=== PATIENT | male | born 1960 | race African-American/Black ===

== ENCOUNTER 2023-12-28 07:52 | Inpatient (IN) | payer SELFPAY ==
[2023-12-28] MEDS ORDERED: Acetaminophen 500 MG TAB ONE (09:52)
[2023-12-28 10:21] LABS: #Eosinphils 0.1 thou/uL (0.0-0.7); #Monocytes 0.7 thou/uL (0.11-0.59); #Neutrophils 6.1 thou/uL (1.40-6.50); %Basophils 0.2 % (0.0-1.0); %Lymphocytes 22.7 % (21.0-51.0); %Monocytes 8.2 % (0.0-10.0); %Neutrophils 67.2 % (42.0-75.0); Hematocrit 37.5 % (42.0-52.0); Mean Corpuscular Hemoglobin 22.6 pg (27.0-31.0); Mean Corpuscular Volume 70.5 fl (78.0-98.0); Platelet Count 553 10x3/uL (130-400); RBC Distribution Width 13.2 % (11.5-14.5); Red Blood Cell (RBC) Count 5.32 mill/uL (4.70-6.10)
[2023-12-28] MEDS ORDERED: Iopamidol-370 76% 500 ML MDV (1 ML CHARGE) ONE (10:29)
[2023-12-28 10:44] LABS: Bacteria/HPF None Seen HPF (None Seen); Bilirubin Negative (Negative); Blood, Urine Negative (Negative); CAUTI Indications for Culture Dysuria,urgency,freq; Clarity Clear (Clear); Glucose, Urine (Dipstick) Normal (Negative); Ketone, Urine Negative (Negative); Leukocyte Negative Leu/uL (Negative); Nitrite Negative (Negative); Protein, Urine (Dipstick) Negative (Neg-Trace); RBC/HPF None Seen HPF (0-3); Specific Gravity, Urine 1.013 (1.002-1.036); Squamous Epithelial None Seen HPF (0-3); Urobilinogen Normal mg/dL (Less than 2); WBC/HPF 0-3 HPF (0-3)
[2023-12-28 10:48] LABS: Urine Culture Reflex No No
[2023-12-28 10:49] LABS: ALT (SGPT) 23 U/L (8-55); AST (SGOT) 17 U/L (5-34); Albumin 3.5 g/dL (3.4-4.8); Alkaline Phosphatase 64 U/L (40-110); Anion Gap 13 mmol/L (10-20); BUN (Urea Nitrogen) 13 mg/dL (8.4-25.7); Bilirubin, Total Less than 0.2 mg/dL (0.2-1.2); CK (CPK) 201 U/L (30-200); Calc. Creatinine Clearance 0 mL/min (70-130); Carbon Dioxide 21 mmol/L (23-31); Chloride 105 mmol/L (98-107); Estimated GFR 102; Globulin 3.5 g/dL (2.4-3.5); Glucose 123 mg/dL (80-115); Lipase 85 U/L (8-78); Magnesium 2.1 mg/dL (1.6-2.6); Potassium 4.4 mmol/L (3.5-5.1); Sodium 135 mmol/L (136-145)
[2023-12-28 10:51] LABS: CellaVision Operator ID LAB.KW3; Platelet Adequacy Comment Platelets Increased; RBC Morphology Within Normal Limits
[2023-12-28 10:58] LABS: HIV (1/2) Antibody/Antigen Non-Reactive (NonReactive); HIV 1/2 INDEX 0.13 S/CO (<1.00); Thyroid Stimulating Hormone 1.5302 uIU/mL (0.35-4.94)
[2023-12-28] MEDS ORDERED: Azithromycin 500 MG VIAL ONE (14:41)
[2023-12-28] MEDS ORDERED: Sodium Chloride 0.9% 100 ML ONE (14:42)
[2023-12-28] MEDS ORDERED: Acetaminophen 325 MG TAB PO PRN (16:06)
[2023-12-28] MEDS ORDERED: Ondansetron PF 4 MG/2 ML Vial IVP PRN (16:06)
[2023-12-28] MEDS ORDERED: Guaifenesin DM 100-10/5 ML UDCUP PO PRN (16:06)
[2023-12-28] MEDS ORDERED: Ondansetron ODT 4 MG TAB PO PRN (16:06)
[2023-12-28] MEDS ORDERED: HYDROcodone/Acetaminophen 5/325 mg Tablet PO PRN (16:06)
[2023-12-28] MEDS ORDERED: Nicotine 14 MG PATCH TD PRN (16:06)
[2023-12-28] MEDS ORDERED: Lorazepam 2 MG/ML VIAL IM PRN (16:09)
[2023-12-28] MEDS ORDERED: Lorazepam 1 MG TAB PO PRN (16:09)
[2023-12-28] MEDS ORDERED: Electrolyte Replacement Protocol 1 EACH FS SCH (16:15)
[2023-12-28] MEDS: Lorazepam 1 MG TAB PO SCH (21:24)
[2023-12-28] MEDS: Multivit, Therapeutic 1 TAB PO SCH (21:24)
[2023-12-28] MEDS: Folic Acid 1 MG TAB PO SCH (21:24)
[2023-12-28] MEDS: Thiamine HCl 200 MG/2 ML VIAL SLOW IVP SCH (21:25)
[2023-12-29 00:32] VITALS: BMI 18.4
[2023-12-29 07:19] LABS: #Eosinphils 0.1 thou/uL (0.0-0.7); #Monocytes 0.5 thou/uL (0.11-0.59); #Neutrophils 3.4 thou/uL (1.40-6.50); %Basophils 0.5 % (0.0-1.0); %Eosinophils 1.4 % (0.0-10.0); %Lymphocytes 36.1 % (21.0-51.0); %Monocytes 7.7 % (0.0-10.0); %Neutrophils 53.8 % (42.0-75.0); Hematocrit 37.5 % (42.0-52.0); Hemoglobin 11.9 g/dL (14.0-18.0); Mean Corpuscular HGB CONC 31.7 g/dL (32.0-36.0); Mean Corpuscular Hemoglobin 22.5 pg (27.0-31.0); Mean Corpuscular Volume 70.8 fl (78.0-98.0); Mean Platelet Volume 10.1 fL (7.4-10.4); Platelet Count 572 10x3/uL (130-400); RBC Distribution Width 13.3 % (11.5-14.5); White Blood Cell (WBC) Count 6.2 10x3/uL (4.8-10.8)
[2023-12-29 07:32] LABS: Prothrombin Time 13.5 sec (12.0-14.7)
[2023-12-29 07:37] LABS: Anion Gap 13 mmol/L (10-20); BUN (Urea Nitrogen) 7 mg/dL (8.4-25.7); Calc. Creatinine Clearance 109 mL/min (70-130); Carbon Dioxide 23 mmol/L (23-31); Chloride 102 mmol/L (98-107); Estimated GFR 108; Glucose 99 mg/dL (80-115); Potassium 4.2 mmol/L (3.5-5.1); Sodium 134 mmol/L (136-145)
[2023-12-29 08:08] LABS: Hemoglobin A1c 6.8 % (4.0-6.0)
[2023-12-29] MEDS ORDERED: Electrolyte Replacement Protocol 1 EACH FS SCH (08:15)
[2023-12-29] MEDS: Magnesium 2 GM/50 ML(in water) 2 GM in Premix 1 BAG IVPB SCH (09:59)
[2023-12-29] MEDS ORDERED: Lidocaine 1% PF 5 ML VIAL ONE (12:08)
[2023-12-29] MEDS ORDERED: fentaNYL 50 mcg/mL 1 mL Vial ONE (12:08)
[2023-12-29] MEDS ORDERED: PROPOFOL 20 ML ONE (12:09)
[2023-12-29] MEDS ORDERED: ePHEDrine Sulfate 50 MG/10 ML VIAL ONE (12:20)
[2023-12-29] MEDS ORDERED: PHENYLEPHRINE-NS 100 MCG/ML 10 ML SYRINGE ONE (12:20)
[2023-12-29] MEDS ORDERED: Lorazepam 1 MG TAB PO PRN (16:09)
[2023-12-29] MEDS: Pantoprazole 40 MG VIAL IVP SCH (21:03)
[2023-12-30] MEDS: Lorazepam 0.5 MG TAB PO SCH (15:01)
[2023-12-30] MEDS: Piperacillin/Tazobactam 3.375 GM in Sodium Chloride 0.9% 100 ML IVPB SCH ×3 (15:42→21:21)
[2023-12-30] MEDS ORDERED: Lorazepam 1 MG TAB PO PRN (16:09)
[2023-12-30] MEDS: Doxycycline 100 MG CAP PO SCH (21:22)
[2023-12-31 05:00] LABS: #Eosinphils 0.1 thou/uL (0.0-0.7); #Monocytes 0.8 thou/uL (0.11-0.59); #Neutrophils 5.7 thou/uL (1.40-6.50); %Basophils 0.2 % (0.0-1.0); %Lymphocytes 27.8 % (21.0-51.0); %Monocytes 8.5 % (0.0-10.0); %Neutrophils 62.2 % (42.0-75.0); Hematocrit 38.4 % (42.0-52.0); Mean Corpuscular HGB CONC 31.3 g/dL (32.0-36.0); Mean Corpuscular Hemoglobin 22.4 pg (27.0-31.0); Mean Corpuscular Volume 71.8 fl (78.0-98.0); Mean Platelet Volume 9.6 fL (7.4-10.4); Platelet Count 608 10x3/uL (130-400); RBC Distribution Width 13.5 % (11.5-14.5); Red Blood Cell (RBC) Count 5.35 mill/uL (4.70-6.10); White Blood Cell (WBC) Count 9.2 10x3/uL (4.8-10.8)
[2023-12-31 05:09] LABS: Legionella Urinary Ag Negative (Negative)
[2023-12-31 05:10] LABS: Strep pneumo Urine Ag NEGATIVE (NEGATIVE)
[2023-12-31 05:29] LABS: Anion Gap 12 mmol/L (10-20); BUN (Urea Nitrogen) 12 mg/dL (8.4-25.7); Calc. Creatinine Clearance 81 mL/min (70-130); Calcium 8.6 mg/dL (7.8-10.44); Carbon Dioxide 27 mmol/L (23-31); Chloride 104 mmol/L (98-107); Estimated GFR 99; Glucose 158 mg/dL (80-115); Potassium 4.6 mmol/L (3.5-5.1); Sodium 138 mmol/L (136-145)
[2023-12-31] MEDS: Thiamine 100 MG TAB PO SCH (08:27)
[2023-12-31] MEDS ORDERED: Lorazepam 0.5 MG TAB PO PRN (16:09)
[2024-01-01 12:40] VITALS: BP 111/71; TEMP 98.2
== END 2024-01-01 12:42 | disposition home or self-care (01) | DRG 374 ==
LOC: ERS 07:52 → ERHOLD 14:37 → T4-A 18:15 → OBSVTOIN 12-30 15:16
PROVIDERS: ADMIT Internal Medicine; ATTEND Family Medicine
PROC: 0DB78ZX Excision of Stomach, Pylorus, Via Natural or Artificial Opening Endoscopic, Diagnostic (ICD-10-PCS; principal; 2023-12-29)
DX: C16.9 Malignant neoplasm of stomach, unspecified (principal); J69.0 Pneumonitis due to inhalation of food and vomit; Z68.1 Body mass index [BMI] 19.9 or less, adult; E44.0 Moderate protein-calorie malnutrition; R64 Cachexia; E78.00 Pure hypercholesterolemia, unspecified; E11.42 Type 2 diabetes mellitus with diabetic polyneuropathy; F17.210 Nicotine dependence, cigarettes, uncomplicated; R35.0 Frequency of micturition; F10.20 Alcohol dependence, uncomplicated; D50.9 Iron deficiency anemia, unspecified; R91.1 Solitary pulmonary nodule; Z98.890 Other specified postprocedural states
CPT/HCPCS: 36415; 36416; 71046; 71260; 72100; 74177; 80048; 80053; 81001; 82550; 83036; 83690; 83735; 84100; 84145; 84443; 85025; 85610; 86140; 87389; 87449; 87899; 88184; 88305; 93005; 96374; 96375; 96376; C9113; G0378; J0456; J2543; J2704; J3010; J3411; J3475; J3490; Q9967

== ENCOUNTER 2024-01-11 14:00 | Outpatient (CLI) | payer OTHER | END 2024-01-11 14:01 | LOC: PET 14:00 | PROVIDERS: ATTEND Internal Medicine | DX: C16.2 Malignant neoplasm of body of stomach (principal); C16.3 Malignant neoplasm of pyloric antrum; C78.7 Secondary malignant neoplasm of liver and intrahepatic bile duct; C77.2 Secondary and unspecified malignant neoplasm of intra-abdominal lymph nodes | CPT/HCPCS: 78815; A9552 ==

== ENCOUNTER 2024-01-18 09:42 | Outpatient (CLI) | payer OTHER | END 2024-01-18 09:43 | disposition home or self-care (01) | LOC: SCSMRI 09:42 | PROVIDERS: ATTEND Internal Medicine | DX: C16.9 Malignant neoplasm of stomach, unspecified (principal); K76.9 Liver disease, unspecified; K31.89 Other diseases of stomach and duodenum | CPT/HCPCS: 74183 ==

== ENCOUNTER 2024-03-27 11:00 | Outpatient (CLI) | payer OTHER | END 2024-03-27 11:01 | disposition home or self-care (01) | LOC: PET 11:00 | PROVIDERS: ATTEND Internal Medicine | DX: C16.2 Malignant neoplasm of body of stomach (principal); C78.7 Secondary malignant neoplasm of liver and intrahepatic bile duct; K31.89 Other diseases of stomach and duodenum | CPT/HCPCS: 78815; A9552 ==

== ENCOUNTER 2024-04-05 06:23 | Inpatient (IN) | payer OTHER ==
[2024-04-05] MEDS ORDERED: Cefepime 2 GM VIAL ONE (07:05)
[2024-04-05] MEDS ORDERED: Vancomycin 1 GM/200 ML (FROZEN) BAG ONE (07:06)
[2024-04-05] MEDS ORDERED: Sodium Chloride 0.9% 100 ML ONE (07:06)
[2024-04-05] MEDS ORDERED: fentaNYL 50 mcg/mL 1 mL Vial ONE ×2 (07:45→11:40)
[2024-04-05] MEDS ORDERED: Ondansetron PF 4 MG/2 ML Vial ONE (07:45)
[2024-04-05 09:02] LABS: Influenza A by NAA Not Detected (NotDetected); Influenza B by NAA Not Detected (NotDetected); SARS-CoV-2 NAA Rapid Test Not Detected (NotDetected)
[2024-04-05 09:09] LABS: Troponin I 0.161 ng/mL (< 0.028)
[2024-04-05 09:11] LABS: ALT (SGPT) 14 U/L (8-55); AST (SGOT) 17 U/L (5-34); Albumin 3.1 g/dL (3.4-4.8); Alkaline Phosphatase 43 U/L (40-110); Anion Gap 20 mmol/L (10-20); BUN (Urea Nitrogen) 16 mg/dL (8.4-25.7); Bilirubin, Total 0.4 mg/dL (0.2-1.2); Calc. Creatinine Clearance 0 mL/min (70-130); Calcium 8.7 mg/dL (7.8-10.44); Carbon Dioxide 12 mmol/L (23-31); Chloride 112 mmol/L (98-107); Estimated GFR 75; Globulin 2.9 g/dL (2.4-3.5); Glucose 340 mg/dL (80-115); Lipase 14 U/L (8-78); Potassium 4.5 mmol/L (3.5-5.1); Sodium 139 mmol/L (136-145)
[2024-04-05 09:12] LABS: Hematocrit 41.2 % (42.0-52.0); Hemoglobin 12.2 g/dL (14.0-18.0); Mean Corpuscular HGB CONC 29.6 g/dL (32.0-36.0); Mean Corpuscular Hemoglobin 22.4 pg (27.0-31.0); Mean Corpuscular Volume 75.7 fL (78.0-98.0); Mean Platelet Volume 10.5 fL (7.4-10.4); Platelet Count 281 10x3/uL (130-400); RBC Distribution Width 23.8 % (11.5-14.5); Red Blood Cell (RBC) Count 5.44 mill/uL (4.70-6.10)
[2024-04-05 09:59] LABS: Anisocytosis MODERATE=16-30 cells HPF (0-5); Band 56 % (5-11); Burr Cells MODERATE= 6-15 cells HPF (0-1); Elliptocytes SLIGHT = 2-5 cells HPF (0-1); Giant Platelets 1.8 % (0-5); Lymphocytes 16 % (21-51); Macrocytosis SLIGHT = 6-15 cells HPF (0-5); Metamyelocyte 3 % (0-0); Monocytes 2 % (0-10); Neutrophil 21 % (42-75); Nucleated RBC (Manual Ct) 2 % (0); Platelet Adequacy Comment Platelets Normal; Poikilocytosis SLIGHT = 6-15 cells HPF (0-5); Reactive Lymphocytes 1 % (0-10); Reflex for Review?? YES; Schistocytes SLIGHT = 2-5 cells HPF (0-1)
[2024-04-05 10:06] LABS: Bacteria/HPF None Seen HPF (None Seen); Bilirubin Negative (Negative); Blood, Urine Trace (Negative); CAUTI Indications for Culture Dysuria,urgency,freq; Clarity Clear (Clear); Glucose, Urine (Dipstick) Greater than 1000 mg/dL (Negative); Ketone, Urine Negative (Negative); Leukocyte Negative Leu/uL (Negative); Nitrite Negative (Negative); Protein, Urine (Dipstick) 50 mg/dL (Neg-Trace); RBC/HPF 0-3 HPF (0-3); Specific Gravity, Urine 1.031 (1.002-1.036); Squamous Epithelial 0-3 HPF (0-3); Urobilinogen Normal mg/dL (Less than 2); pH, Urine 6.5 (5.0-9.0)
[2024-04-05 10:10] LABS: Urine Culture Reflex No No
[2024-04-05] MEDS ORDERED: metroNIDAZOLE 500 MG (100 mL) BAG ONE (10:34)
[2024-04-05] MEDS ORDERED: Ondansetron PF 4 MG/2 ML Vial IVP PRN ×2 (11:45→11:57)
[2024-04-05] MEDS ORDERED: Ondansetron ODT 4 MG TAB SL PRN (11:45)
[2024-04-05] MEDS ORDERED: Calcium Carbonate 500 MG ChewTAB PO PRN (11:57)
[2024-04-05] MEDS ORDERED: Senokot S 8.6-50 MG TAB PO PRN (11:57)
[2024-04-05] MEDS ORDERED: LORazepam 2 MG/ML SYR.(CARPUJECT) SLOW IVP PRN (12:19)
[2024-04-05] MEDS ORDERED: Morphine 4 MG/ML VIAL SLOW IVP PRN ×2 (12:19→13:21)
[2024-04-05 12:55] LABS: Lactic Acid 6.7 mmol/L (0.5-2.2)
[2024-04-05] MEDS: Sodium Chloride 0.9% 1,000 ML IV SCH (14:22)
[2024-04-05] MEDS: HYDROmorphone 0.5 MG/0.5 ML SYRINGE SLOW IVP SCH (14:25)
[2024-04-05 17:20] VITALS: BMI 18.1
[2024-04-05 18:06] VITALS: BP 61/43; TEMP 94.7
[2024-04-05] MEDS: HYDROmorphone 1 MG/ML SYRINGE SLOW IVP SCH (19:49)
== END 2024-04-05 21:43 | disposition expired | DRG 374 ==
LOC: SUATTDRO 06:23 → EDBD 06:23 → ERS 06:23 → T4-A 11:37
PROVIDERS: ADMIT Internal Medicine; ATTEND Internal Medicine
DX: C16.9 Malignant neoplasm of stomach, unspecified (principal); K63.1 Perforation of intestine (nontraumatic); C22.8 Malignant neoplasm of liver, primary, unspecified as to type; C18.9 Malignant neoplasm of colon, unspecified; K66.8 Other specified disorders of peritoneum; Z51.5 Encounter for palliative care; Z66 Do not resuscitate; K31.89 Other diseases of stomach and duodenum; K46.9 Unspecified abdominal hernia without obstruction or gangrene; Z79.899 Other long term (current) drug therapy; Z87.891 Personal history of nicotine dependence
CPT/HCPCS: 36415; 36416; 71045; 71275; 74177; 80053; 81001; 83605; 83690; 84484; 85025; 85060; 87040; 93005; 96365; 96367; 96375; 96376; J0692; J1170; J2405; J3010; J3370-JW; J3490; J7050